=== PATIENT | male | born 1980 | race Caucasian/White ===

== ENCOUNTER 2022-04-18 18:11 | Emergency (ER) | payer SELFPAY ==
[2022-04-18 18:23] VITALS: BP 129/85; PULSE 62; RESP 14; TEMP 37; O2SAT 99; BMI 25.1
--- NOTE | 2022-04-18 18:52 | ED_ITS ---
HPI - Eye Problem General Time Seen by Provider: 18:51 Date Seen: 04/18/22 Chief complaint: Eye Problems Stated complaint: FOREIGN OBJECT IN RT EYE,POSSIBLY PLASTIC Time Seen by Provider: 04/18/22 18:17 History of Present Illness HPI Narrative: This 42-year-old male comes in with painful right eye. 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 As he was driving home he had the window open any thinks that something blue and off of his arm her body and got into his right eye. He comes in preferring to keep his right eye closed. He feels like there might be a scratch her injury on the medial aspect of his right eye. Related Data Home Medications Medication Instructions Recorded Confirmed No Known Home Medications 04/18/22 04/18/22 Previous Rx's Medication Instructions Recorded polymyxin B sulfate 10,000 1 drp OPHTHALMIC (EYE) Q3H 7 Days 04/18/22 unit-trimethoprim 1 mg/mL eye #10 ml drops (Polytrim) Allergies Allergy/AdvReac Type Severity Reaction Status Date / Time amoxicillin Allergy Verified 04/18/22 18:21 Penicillins Allergy Verified 04/18/22 18:21 Review of Systems Status of ROS: Reports: 10 or more systems reviewed and unremarkable except as noted in History and below Narrative: Constitutional: No fevers, no weight gain or loss. Eyes: No discharge. Pain in the right eye as described above which is worsened with opening his eye. HENT: No congestion, no sore throat, no ear pain. Cardiovascular: No chest pain, no palpitations. Respiratory: No shortness of breath, no wheezes, no cough. Gastrointestinal: No abdominal pain, no vomiting, no diarrhea. Genitourinary: No dysuria, no hematuria. Musculoskeletal: Normal range of motion. Skin: No rashes, no pruritis. Neurological: No dizziness, weakness, sensory change, speech change. Endo/Heme/Allergies: No bruising or bleeding. No polydipsia. Pysch: no suicidality, no anxiety, no insomnia. All other systems reviewed and are negative. PFS PFS Medical History (Updated 04/18/22 @ 18:56 by Primo Bray MD) Afib Surgical History (Updated 04/18/22 @ 18:54 by Zeenat Obando RN) No significant past surgical history Social History Smoking Status: Former smoker How often do you have a drink containing alcohol: monthly or less AUDIT-C Alcohol total score: 1 Non-prescribed substance use: marijuana (any form) Exam Narrative: Exam Narrative: Constitutional: Well-developed, well-nourished, no acute distress. HEENT: Normocephalic, atraumatic. Right eye is examined after tetracaine anesthesia by using magnification. There is no evidence of foreign object. This included everting the upper eyelid. Neck: Normal range of motion. Nontender. Supple. Heart: Intact distal pulses. Lungs: No chest discomfort. No wheezes, rhonchi, or rales. Abdomen: Nontender. Back: Normal range of motion. Extremities: Normal range of motion. No injury. Skin: Intact. No rash. Warm. No erythema or pallor. Neurologic: No altered sensation. No weakness. Alert and oriented. Psychiatric: No suicidality. No anxiety or depression. No insomnia. Nursing notes and vitals signs are reviewed. Const: Vital Signs, click to edit/add: Vital Signs - 24 hr 04/18/22 18:23 Temperature 98.6 F Pulse Rate [Left P ulse Oximeter] 62 Respiratory Rate 14 Blood Pressure [Le ft Upper Arm] 129/85 Pulse Oximetry 99 Course Vital Signs Vital signs: Initial Vital Signs Temperature 98.6 F 04/18/22 18:23 Temperature Source Temporal Artery Scan 04/18/22 18:23 Pulse Rate 62 04/18/22 18:23 Respiratory Rate 14 04/18/22 18:23 Blood Pressure 129/85 04/18/22 18:23 Blood Pressure Mean 99 04/18/22 18:23 Blood Pressure Position Sitting 04/18/22 18:23 Pulse Oximetry 99 04/18/22 18:23 Oxygen Delivery Method 04/18/22 18:23 Vital Signs Temperature 98.6 F 04/18/22 18:23 Pulse Rate 62 04/18/22 18:23 Respiratory Rate 14 04/18/22 18:23 Blood Pressure 129/85 04/18/22 18:23 Pulse Oximetry 99 04/18/22 18:23 Temperature 98.6 F 04/18/22 18:23 Pulse Rate 62 04/18/22 18:23 Respiratory Rate 14 04/18/22 18:23 Blood Pressure 129/85 04/18/22 18:23 Pulse Oximetry 99 04/18/22 18:23 MDM - Eye Problem MDM Narrative Medical decision making narrative: This patient comes in with pain in his right eye. He got great relief after tetracaine drops were applied. There is no evidence of foreign object when assessing under magnification. I did use floor seen dye and a cobalt blue pen light to attempt to assess for dye uptake. In my opinion the penlight is not sufficient for evaluation like would be done with a Wood's lamp. In any event I did not see any dye uptake but I do suspect a corneal abrasion. The patient was given instructions regarding eye care and a prescription for Polytrim ophthalmic solution. Discharge Plan Discharge Clinical Impression: Corneal abrasion Patient Disposition: Home, Self-Care Condition: Stable Instructions: Corneal Abrasion (ED) Additional Instructions: Corneal abrasion. Take medication as prescribed. Follow up with MD or return if worsening. Prescriptions: New polymyxin B sulf-trimethoprim [Polytrim] 10,000 unit- 1 mg/mL drops 1 drp ophthalmic (eye) Q3H 7 Days Qty: 10 0RF Rx Instructions: while awake; do not exceed 6 doses in 24 hours No Action No Known Home Medications 0RF Stand Alone Forms: [facility] Info Instructions
== END 2022-04-18 19:06 | disposition home or self-care (01) ==
PROVIDERS: Emergency Provider Emergency Medicine Emergency Medical Services
DX: S05.01XA Injury of conjunctiva and corneal abrasion without foreign body, right eye, initial encounter (principal)
CPT/HCPCS: 99282; 99283; 99284; A9270